=== PATIENT | male | born 1950 | race African-American/Black ===

== ENCOUNTER 2017-04-18 08:45 | Emergency (ER) | payer MEDICARE, OTHER ==
--- NOTE | ~2017-04-18 | CR72 ---
[facility] A Service of [facility] / [facility] RADIOLOGY TEXT RESULTS PATIENT: LAMINE IBARRA LOCATION: [facility] : 54 UNIT #: [id number] AGE: [address]: Edilberto Fernandez MD SEX: M ORDER DR: [id number] [facility] [address] [place], [place] [address] [id number] MR#: [id number] Acc #: [id number] NAME: LAMINE IBARRA : 1950 SEX: M STUDY DATE/TIME: 04/18/2017926 UNIT: [facility] ROOM: STUDY DESCRIPTION: CR Chest Single View Portable Attending Physician: Edilberto Fernandez M.D. Ordering Physician: Edilberto Fernandez M.D. Primary Care Physician: Fhaad Donaldson M.D. MEDICAL IMAGING REPORT This report is preliminary unless electronic signature is present EXAM Chest, portable, 04/18/2017, 0927 hours. CLINICAL HISTORY Dizziness with rapid heart rate for 1 week. History of hypertension and diabetes. COMPARISON 09/09/2015 FINDINGS Upright portable chest film demonstrates heart size within normal limits. The descending thoracic aorta is mildly tortuous but unchanged. Pulmonary vascularity is normal. The lungs are clear. There is no pleural effusion. There is degenerative change, moderate at both acromioclavicular joints. IMPRESSION No acute cardiopulmonary findings. No significant change from 09/09/2015. Dictated by... Comfort Meredith M.D. THIS IS AN ELECTRONICALLY VERIFIED REPORT Comfort Meredith M.D. at 04/18/2017 7:31 PM SMM/crhistie TD: 04/18/2017 11:52 JOB #: [id number] MEDICAL IMAGING REPORT [facility] A Service of [facility] / [facility] RADIOLOGY TEXT RESULTS PATIENT: LAMINE IBARRA LOCATION: [facility] : 54 UNIT #: [id number] AGE: [address]: Edliberto Fernandez MD SEX: M ORDER DR: Page 1 of 1 COPY
--- NOTE | ~2017-04-18 | EKG ---
PATIENT: LAMINE IBARRA UNIT #: [id number] Ventricular Rate: 109 BPM Atrial Rate: 109 BPM P-R Interval: 154 ms QRS Duration: 64 ms Q-T Interval: 310 ms QTC Calculation(Bezet): 417 ms P [place]: 63 degrees Calculated R [place]: 24 degrees Calculated T [place]: 50 degrees Diagnosis Line: Sinus tachycardia Diagnosis Line: Nonspecific ST abnormality Diagnosis Line: Abnormal ECG Diagnosis Line: When compared with ECG of 09-SEP-2015 19:12, Diagnosis Line: No significant change was found Diagnosis Line: Confirmed by JOSÉ CALVILLO MD ([id number]) on Diagnosis Line: 04/19/2017 9:04:50 PM INTERPRETING MD: NAYELI
[~2017-04-18 08:45] MED LIST: ACTOS PO; BENICAR HCT 40-1 TAB PO; CRESTOR PO; IBUPROFEN PO; METFORMIN PO; VICODIN 5/500 T1 TAB PO
[2017-04-18 09:22] LABS: BASOPHIL% 0.9 % (0-2.5); EOSINOPHIL# 0.2 X10e3 (0-0.7); EOSINOPHIL% 5.4 % (0.0-7.0); HEMOGLOBIN 13.3 gm/dL (13.0-16.0); LYMPHOCYTE# 1.5 X10e3 (1.0-3.5); LYMPHOCYTE% 35.3 % (17.0-45.0); MEAN CELL VOLUME 90.7 FL (83-96); MEAN CORPUSCULAR HEMOGLOBIN 29.5 PG (28-34); MEAN CORPUSCULAR HGB CONC 32.5 g/dL (30-36); MEAN PLATELET VOLUME 7.4 FL (6.5-11.5); MONOCYTE# 0.4 X10e3 (0-1.0); MONOCYTE% 9.3 % (3.0-12.0); NEUTROPHIL# 2.1 X10e3 (1.5-7.1); NEUTROPHIL% 49.1 % (40-75); PLATELET COUNT 223 X10e3 (140-420); RED BLOOD COUNT 4.52 X10e (3.90-5.60); RED CELL DISTRIBUTION WIDTH 13.8 % (11.0-15.5); WHITE BLOOD COUNT 4.3 X10e3 (4.0-10.5)
[2017-04-18 09:34] LABS: DIFF IND NO
[2017-04-18 09:39] LABS: POC - CKMB 1.6 ng/mL (0.0-7.9); POC - TROPONIN <0.05 ng/mL (<=0.05)
[2017-04-18 09:59] LABS: ALBUMIN SERUM 4.2 g/dL (3.5-5.0); BILIRUBIN, DIRECT 0.1 mg/dL (0.0-0.2); BILIRUBIN,TOTAL 1.1 mg/dL (0.2-2.0); BUN/CREATININE RATIO 11.87; CALCIUM SERUM 9.1 mg/dL (8.4-10.2); CREATININE SERUM 1.6 mg/dL (0.6-1.4); GLOM FILT RATE Estimated 51.7 mL/min (>60); POTASSIUM 3.8 mmol/L (3.5-5.1); PROTEIN TOTAL SERUM 6.9 g/dL (6.0-8.3)
== END 2017-04-18 10:32 | disposition home or self-care (01) ==
LOC: CED 08:45
PROVIDERS: Emergency Medicine
DX: R42 Dizziness and giddiness (principal); N18.9 Chronic kidney disease, unspecified
CPT/HCPCS: 71010; 80048; 80076; 82553; 82947; 84484; 85025; 93005; 96360; 99284